=== PATIENT | male | born 1995 | race African-American/Black ===

== ENCOUNTER 2020-02-29 16:09 | Emergency (ER) | payer OTHER ==
[~2020-02-29] VITALS: Ht 175.3 cm; Wt 82.0 kg
[2020-02-29] MEDS ORDERED: IBUPROFEN 600MG TABLET PO ONE (18:00)
[2020-02-29 19:10] VITALS: BP 110/67
== END 2020-02-29 19:12 | disposition home or self-care (01) ==
LOC: ER 16:09
DX: M54.2 Cervicalgia (principal); R10.2 Pelvic and perineal pain; M25.562 Pain in left knee
CPT/HCPCS: 72040; 72170; 73564; 99284